=== PATIENT | female | born 1980 | race Asian ===

== ENCOUNTER 2018-01-23 11:06 | Emergency (ER) | payer OTHER ==
[2018-01-23] MEDS ORDERED: diPHENhydraMINE PO* 50 MG PO ONE (11:28)
[2018-01-23] MEDS ORDERED: NS 0.9% 1000 ML* 1,000 ML IV ONE (11:28)
[2018-01-23] MEDS ORDERED: Ketorolac INJ* 30 MG/ML 1 ML VIAL IV PUSH ONE (11:28)
[2018-01-23] MEDS ORDERED: Metoclopramide IV* 5 MG/ML 2 ML VIAL IV ONE (11:28)
--- NOTE | 2018-01-23 11:29 | ED ---
GI/ HPI - HPI Summary HPI Summary: The pt is a 37 y/o female presenting [facility] c/o of nausea and vomiting for the last 2 weeks. She is 8 weeks . She notes a L sided FLORENTINO (lasting 3 days), dyspnea, neck pain and insomnia secondary to the pain. The sharp FLORENTINO rated 3/10 in severity is aggravated by light. The pt arrives from the [facility] accompanied by a patient advocate. 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 - History of Current Complaint Chief Complaint: EDNauseaVomitDiarrh Time Seen by Provider: 01/23/18 11:14 Stated Complaint: VOMITING/8 WKS PREG Hx Obtained From: Patient Onset/Duration: Started Weeks Ago - 2 weeks, Still Present Timing: Constant Severity: Mild Pain Intensity: 3 Location of Pain: Other - L side of the head Pain Characteristics: Sharp Associated Signs and Symptoms: Positive: Nausea, Vomiting - Allergy/Home Medications Allergies/Adverse Reactions: Allergies Allergy/AdvReac Type Severity Reaction Status Date / Time No Known Allergies Allergy Verified 01/23/18 11:12 PMH/Surg Hx/FS Hx/Imm Hx Previously Healthy: Yes Endocrine/Hematology History: Denies: Hx Diabetes Cardiovascular History: Denies: Hx Hypercholesterolemia, Hx Hypertension Sensory History: Denies: Hx Deafness - Cancer History Cancer Type, Location and Year: None reported - Surgical History Surgery Procedure, Year, and Place: None reported Infectious Disease History: No Infectious Disease History: Denies: Traveled Outside the [place] in Last 30 Days - Family History Known Family History: Negative: Cardiac Disease, Hypertension, Diabetes - Social History Lives: With Family Alcohol Use: None Hx Substance Use: No Hx Tobacco Use: No Review of Systems Constitutional: Other - Positive: insomnia secondary to pain ENT: Other - Positive: Neck pain Positive: Other - Positive: Dyspnea Positive: Vomiting, Nausea Positive: Headache - L sided All Other Systems Reviewed And Are Negative: Yes Physical Exam - Summary Physical Exam Summary: Appearance: The patient is well-nourished and in moderate distress and in no acute pain. Skin: The skin is warm and dry and skin color reflects adequate perfusion. HEENT: The head is normocephalic and atraumatic. The pupils are equal and reactive. The conjunctivae are clear and without drainage. Nares are patent and without drainage. Mouth reveals moist mucous membranes and the throat is without erythema and exudate. The external ears are intact. The ear canals are patent and without drainage. The tympanic membranes are intact. Neck: The neck is supple with full range of motion and non-tender. There are no carotid bruits. There is no neck vein distension. Respiratory: Chest is non-tender. Lungs are clear to auscultation and breath sounds are symmetrical and equal. Cardiovascular: Heart is regular rate and rhythm. There is no murmur or rub auscultated. There is no peripheral edema and pulses are symmetrical and equal. Abdomen: The abdomen is soft and non-tender. There are normal bowel sounds heard in all four quadrants and there is no organomegaly palpated. Musculoskeletal: There is no back tenderness noted. Extremities are non-tender with full range of motion. There is good capillary refill. There is no peripheral edema or calf tenderness elicited. Neurological: No meningeal signs. Patient is alert and oriented to person, place and time. The patient has symmetrical motor strength in all four extremities. Cranial nerves are grossly intact. Deep tendon reflexes are symmetrical and equal in all four extremities. Psychiatric: The patient has an appropriate affect and does not exhibit any anxiety or depression. Triage Information Reviewed: Yes Vital Signs On Initial Exam: Initial Vitals Temp Pulse Resp BP Pulse Ox 98.3 F 86 16 108/63 99 01/23/18 11:09 01/23/18 11:09 01/23/18 11:09 01/23/18 11:09 01/23/18 11:09 Vital Signs Reviewed: Yes Diagnostics - Vital Signs Vital Signs Temp Pulse Resp BP Pulse Ox 01/23/18 11:09 98.3 F 86 16 108/63 99 - Laboratory Result Diagrams: 01/23/18 11:58 01/23/18 11:58 Lab Statement: Any lab studies that have been ordered have been reviewed, and results considered in the medical decision making process. GIGU Course/Dx - Course Course Of Treatment: Ms. Wong presented to the emergency department complaining that she has been nauseated and vomiting for the last 2 weeks. She found out she was about 4 weeks ago and has her first appointment in 3 days with [facility]. About 2 or 3 days ago she started with a left-sided headache which causes some mild photophobia. Her neck is not stiff. On exam she looks uncomfortable. There is no meningeal sign. She was given IV fluids as well as a "migraine cocktail" of Benadryl, Reglan and Toradol. She got complete relief of her headache with this but continued with the nausea and she was given additional dose of IV Zofran. She had no vomiting here in the emergency department but her nausea was not completely controlled. I gave her a short prescription for doxylamine/pyridoxine until she can get into see her [facility] doctors. - Diagnoses Provider Diagnoses: Migraine headache, Hyperemesis gravidarum Discharge - Sign-Out/Discharge Documenting (check all that apply): Patient Departure - DC - Discharge Plan Condition: Improved Disposition: HOME Prescriptions: B6/mg/Turm/Sima/Anis/Gar/Gin/Sp [Morning Sickless Combo Pack] 1 kit PO DAILY WITH MEAL #1 kit Doxylamine/Pyridoxine(NF) [Diclegis (NF)] 1 tab PO BEDTIME #20 tab Patient Education Materials: Hyperemesis Gravidarum (ED), Migraine Headache (ED ) Referrals: [facility] [Outside] - 2 Days Additional Instructions: Follow up with your PCP in 2 days Return to ED for any new or worsening symptoms - Billing Disposition and Condition Condition: IMPROVED Disposition: Home - Attestation Statements Document Initiated by Scribe: Yes Documenting Scribe: Lisette Giron Provider For Whom Rolando is Documenting (Include Credential): Dr. Evan Alvarez MD Scribe Attestation: Lisette Rodriguez , scribed for Dr. Evan Alvarez MD on 01/23/18 at 1844. Scribe Documentation Reviewed: Yes Provider Attestation: The documentation as recorded by the scribeLisette accurately reflects the service I personally performed and the decisions made by me, Dr. Evan Alvarez MD
[2018-01-23 12:15] LABS: ABS Basophils 0 10^3/ul (0-0.2); ABS Eosinophils 0 10^3/ul (0-0.6); ABS Lymphocytes 1.3 10^3/ul (1.0-4.8); ABS Monocytes 0.7 10^3/ul (0-0.8); ABS Neutrophils 5.6 10^3/ul (1.5-7.7); ABS Nucleated RBC 0 10^3/ul; Eosinophil % 0.3 % (0-6); Hematocrit 34 % (35-47); Hemoglobin 11.7 g/dl (12.0-16.0); Mean Corpuscular HGB Conc 34 g/dl (31-36); Mean Corpuscular Hemoglobin 32 pg (27-31); Mean Corpuscular Volume 93 fL (80-97); Mean Platelet Volume 7.8 um3 (7.4-10.4); Nucleated Red Blood Cells % 0.1; Platelet Count 284 10^3/ul (150-450); Red Blood Count 3.68 10^6/ul (4.00-5.40); Red Cell Distribution Width 13 % (10.5-15); White Blood Count 7.6 10^3/ul (3.5-10.8)
[2018-01-23 12:37] LABS: EGFR Non-African American 143.7 (>60)
[2018-01-23] MEDS ORDERED: Ondansetron INJ* 2 MG/ML VIAL IV ONE (14:44)
[2018-01-23 17:01] VITALS: BP 103/65
== END 2018-01-23 17:00 | disposition home or self-care (01) ==
LOC: ED 11:06
DX: O21.0 Mild hyperemesis gravidarum (principal); Z3A.08 8 weeks gestation of pregnancy; O26.891 Other specified pregnancy related conditions, first trimester; G43.909 Migraine, unspecified, not intractable, without status migrainosus
CPT/HCPCS: 36415; 80053; 84702; 85025; 86140; 96361; 96374; 96375; 99283; A9270-GY; J1885; J2405; J2765

== ENCOUNTER 2018-08-31 08:32 | Inpatient (IN) | payer OTHER ==
[2018-08-31] MEDS ORDERED: Lactated Ringers 1000 ML Bag* 1,000 ML IV ONE (09:13)
[2018-08-31] MEDS ORDERED: Buffered Lidocaine 1% SYRIN* 1 ML/SYRINGE INTRADERM ONE (09:13)
--- NOTE | 2018-08-31 09:20 | HP ---
General Information - Reason for Visit 38 y.o. , 39weeks EGA, fully dilated, contractions starting at 4AM. Hep B + - General Information Maternal Age: 38 Grav: 4 Para: 2 IEA: 1 Estimated Due Date: 09/18/18 Determined By: Early Ultrasound Gestational Age in Weeks/Days: 39 Maternal Blood Type and Rh: B Positive - Results this Serology/RPR Result: Non-Reactive Rubella Result: Immune HBsAg Result: Positive HIV Result: Negative GBS Culture Result: Negative Past Medical History Delivery History: Hx Uncomplicated Vaginal Delivery Pertinent Past Medical History: See Records - AMA, Hep B positive ( chronic) Pertinent Past Surgical History: None Pertinent Family History: See Records - cancer - Antepartal Records Antepartal Records: Reviewed, Complicated by: - AMA, chronic Hep B, hyperemesis (resolved) Review of Systems Constitutional: Uncomfortable CV Complaint: No Respiratory: Shortness of Breath: No Gastrointestinal: No Nausea/Vomiting, Normal Bowel Movement Genitourinary: No Dysuria, No Bleeding, No Leaking Fluid Musculoskeletal: Contractions Neurological: No Headache, No Visual Changes Movement: Normal Exam Allergies/Adverse Reactions: Allergies No Known Allergies Allergy (Verified 02/28/18 11:01) T:97.9 - Measurements Height: 5 ft 2 in Weight: 137 lb Body Mass Index (BMI): 25.0 Pre- Weight: 112 lb - Exam Breast: Breast Exam Deferred CVA: No CVA Tenderness Extremities: No Edema Heart: Normal Rhythm/Heart Sounds HEENT: No Significant Findings Lungs: Clear Bilaterally Rectal: Rectal Exam Deferred Reflexes: DTR 2+ Thyroid: No Thyromegaly - Abdominal Exam Abdomen Exam: Fundal Height Consistent with Dates - Ultrasound/Biophysical Profile Ultrasound Status: Not Done Targeted Exam Findings Estimated Weight: 7lbs Cervical Exam: Complete Effacement: 100% Station: 0 Presenting Part: Vertex Membrane Status: Bulging Bleeding/Discharge: None EFM Findings - External Monitor Findings Baseline Heart Rate: 140 External Monitor Findings: Accelerations Present, No Pattern of Variable or Late Decelerations, Variability Moderate, Baseline Stable Contractions: Regular, Moderate, 45-90 Seconds Assessment/Plan - Assessment 38 y.o. , 39wks EGA, in labor - Obstetrical Risk Factors Risk Factors Comment: chronic Hep B - Plan Plan: Admit - Anticipate Vaginal Delivery - Date/Time of Admission Date of Admission: 08/31/18 Time of Admission: 09:00
[2018-08-31] MEDS ORDERED: Lidocaine 2% VISCOUS* 15 ML UDC ONE (09:38)
[2018-08-31] MEDS ORDERED: Lactated Ringers 1000 ML Bag* 1,000 ML IV SCH ×2 (10:00→11:00)
[2018-08-31] MEDS ORDERED: Witch Hazel PAD* JAR TOPICAL PRN (10:07)
[2018-08-31] MEDS ORDERED: Dibucaine 1% 28.35 GM TUBE PR PRN (10:07)
[2018-08-31] MEDS ORDERED: Glycerin ADULT SUPP PR PRN (10:07)
--- NOTE | 2018-08-31 10:09 | PROCNOTE ---
[facility] OB: Delivery Note - Delivery A Date of : 08/31/18 [place] Sex: Female Score 1 Minute: 9 Score 5 Minutes: 9 Gestational Age in Weeks and Days at Delivery: 37 Weeks and 3 Days Delivery Method: Spontaneous Vaginal Labor: Spontaneous Amniotic Fluid: Clear Estimated Blood Loss: 100 Anesthesia/Analgesia: None Delivered By: Char Castellanos - Nursery Level of Nursery: Regular/Bedside - Perineum Perineal Injury: Perineal Laceration, 1st Degree Perineal Repair: By Delivering Practioner - Events Delivery Events of Note: None Apply
[2018-08-31] MEDS: Ibuprofen TAB* 600 MG PO PRN ×3 (10:31→23:49)
[2018-08-31] MEDS ORDERED: Simethicone TAB* 80 MG TAB.CHEW PO SCH (12:30)
[2018-08-31] MEDS: Docusate CAP* 100 MG PO SCH ×2 (13:50→22:06)
[2018-09-01 07:08] LABS: ABS Basophils 0.1 10^3/ul (0-0.2); ABS Eosinophils 0.2 10^3/ul (0-0.6); ABS Lymphocytes 1.5 10^3/ul (1.0-4.8); ABS Monocytes 0.8 10^3/ul (0-0.8); ABS Neutrophils 9.8 10^3/ul (1.5-7.7); Eosinophil % 1.3 %; Hematocrit 35 % (35-47); Hemoglobin 11.6 g/dL (12.0-16.0); Mean Corpuscular HGB Conc 33 g/dL (31-36); Mean Corpuscular Hemoglobin 31 pg (27-31); Mean Corpuscular Volume 94 fL (80-97); Mean Platelet Volume 8.7 fL (7.4-10.4); Nucleated Red Blood Cells % 0.1; Platelet Count 205 10^3/uL (150-450); Red Blood Count 3.72 10^6 /uL (3.70-4.87); Red Cell Distribution Width 14 % (10.5-15); White Blood Count 12.2 10^3/uL (3.5-10.8)
[2018-09-01] MEDS: Ibuprofen TAB* 600 MG PO PRN ×3 (07:30→20:38)
[2018-09-01] MEDS ORDERED: Ferrous Gluconate TAB* 324 MG TAB PO SCH (09:00)
[2018-09-01] MEDS: Docusate CAP* 100 MG PO SCH ×3 (09:56→20:38)
[2018-09-01] MEDS: Acetaminophen TAB* 325 MG PO PRN ×3 (10:01→20:38)
[2018-09-01 20:45] VITALS: BP 105/55
[2018-09-02] MEDS: Acetaminophen TAB* 325 MG PO PRN (04:02)
[2018-09-02] MEDS: Ibuprofen TAB* 600 MG PO PRN ×3 (04:02→15:58)
[2018-09-02] MEDS: Docusate CAP* 100 MG PO SCH ×2 (07:56→15:58)
== END 2018-09-02 17:01 | disposition home or self-care (01) | DRG 560 ==
LOC: MCHOBOUT 08:32 → MCHOB 09:06
PROVIDERS: ADMIT Midwife; ATTEND Midwife
PROC: 10E0XZZ Delivery of Products of Conception, External Approach (ICD-10-PCS; principal; 2018-08-31)
PROC: 0HQ9XZZ Repair Perineum Skin, External Approach (ICD-10-PCS; 2018-08-31)
DX: O98.42 Viral hepatitis complicating childbirth (principal); B18.1 Chronic viral hepatitis B without delta-agent; Z37.0 Single live birth; O70.0 First degree perineal laceration during delivery; O90.81 Anemia of the puerperium; D64.9 Anemia, unspecified; Z3A.39 39 weeks gestation of pregnancy
CPT/HCPCS: 36415; 85025; A9270-GY